=== PATIENT | female | born 1995 | race African-American/Black ===

== ENCOUNTER → 2024-04-05 | Emergency (ER) | payer SELFPAY ==
[~2024-04-05] VITALS: Ht 170.2 cm; Wt 64.0 kg
[~2024-04-05] MED LIST: LORAZEPAM 2MG/ML INJ IM ONE
[2024-04-05] MEDS: SODIUM CHLORIDE 0.9% 1,000 ML IV ONE (18:19)
[2024-04-05] MEDS: HALOPERIDOL LACTATE 5MG/ML VIAL IM ONE (21:02)
[2024-04-05] MEDS: LORAZEPAM 2MG/ML INJ IV ONE (21:03)
[2024-04-05 22:24] LABS: BASOPHILS % 0.3 % (0.0-2.0); EOSINOPHILS % 0.2 % (0.0-5.0); HEMOGLOBIN. 12.3 g/dL (12.0-16.0); LYMPHOCYTES % 10.7 % (20.0-50.0); MEAN CORPUSCULAR HEMOGLOBIN 27.2 pg (28.0-32.0); MEAN CORPUSCULAR HGB CONC 32.2 g/dL (31.0-37.0); MEAN CORPUSCULAR VOLUME 84.4 fL (81.0-99.0); MEAN PLATELET VOLUME 9.3 fl (7.4-10.4); MONOCYTES % 8.3 % (2.0-8.0); NEUTROPHILS % 80.5 % (40.0-76.0); PLATELET 305 x1000/uL (130-400); RED BLOOD CELL COUNT 4.51 mill/uL (4.2-5.4); RED CELL DISTRIBUTION WIDTH 15.7 % (11.6-14.6); WHITE BLOOD COUNT 11.7 x1000/uL (4.5-11.0)
[2024-04-05 22:32] LABS: CHLORIDE 106 mEq/L (98-107); SODIUM 139 mEq/L (136-145)
[2024-04-05 22:33] LABS: CALCIUM 9.6 mg/dL (8.7-10.4); CARBON DIOXIDE 26 mEq/L (21-32)
[2024-04-05 22:35] LABS: HCG SCREEN NEGATIVE
[2024-04-05 22:38] LABS: CREATININE 0.8 mg/dL (0.6-1.0); GLUCOSE 111 mg/dL (70-105)
[2024-04-05 22:39] LABS: UREA NITROGEN BLOOD 9 mg/dL (9-23)
[2024-04-05 22:40] LABS: ACETAMINOPHEN < 2 ug/mL (10-30); ALANINE AMINOTRANSFERASE 17 IU/L (10-49); ALBUMIN 4.4 g/dL (3.2-4.8); ASPARTATE AMINOTRANSFERASE 23 IU/L (<34); ETHANOL BLOOD < 10 mg/dL (<10)
[2024-04-05 22:41] LABS: BILIRUBIN DIRECT < 0.1 mg/dL (<=3.0); BILIRUBIN TOTAL 0.3 mg/dL (0.1-1.0); PROTEIN TOTAL 7.7 g/dL (6.0-8.3)
[2024-04-05 23:10] VITALS: O2SAT 99
[2024-04-06 01:06] LABS: CLARITY URINE CLEAR (CLEAR); COLOR URINE YELLOW (YELLOW); GLUCOSE URINE NEGATIVE (NEGATIVE); KETONES URINE NEGATIVE (NEGATIVE); LEUKOCYTE ESTERASE URINE NEGATIVE (NEGATIVE); NITRITE URINE NEGATIVE (NEGATIVE); OCCULT BLOOD URINE NEGATIVE (NEGATIVE); PH URINE >=9.0 (4.5-8.0); PROTEIN URINE NEGATIVE (NEGATIVE); SPECIFIC GRAVITY URINE 1.011 (1.005-1.030); UROBILINOGEN URINE 0.2 E.U./dL (0.2-1.0)
[2024-04-06 01:19] LABS: *AMPHETAMINES SCREEN URINE NEGATIVE (NEGATIVE); *BARBITURATES SCREEN URINE NEGATIVE (NEGATIVE); *BENZODIAZEPINES SCREEN URINE NEGATIVE (NEGATIVE); *COCAINE SCREEN URINE NEGATIVE (NEGATIVE); CANNABINOID URINE SCREEN NEGATIVE (NEGATIVE); ECSTASY MDMA SCREEN URINE NEGATIVE (NEGATIVE); METHADONE URINE SCREEN NEGATIVE (NEGATIVE); OPIATES URINE SCREEN NEGATIVE (NEGATIVE); PHENCYCLIDINE URINE SCREEN NEGATIVE (NEGATIVE)
[2024-04-07] MEDS: ARIPIPRAZOLE 5MG TABLET PO SCH (14:30)
[2024-04-08 06:10] VITALS: BP 100/61; PULSE 87; RESP 14; TEMP 99.1
== END ==
LOC: EDBD 17:19 → ER 17:19
DX: R46.2 Strange and inexplicable behavior (principal); R41.82 Altered mental status, unspecified
CPT/HCPCS: 80076; 80048; 80307; 80329; 80320; 84703; 85025; 36415; 70450; 96361; 96372; 96374; 99285; J1630; J2060; J7030; Z7610 ×2; G0480